=== PATIENT | male | born 1965 | race Caucasian/White ===

== ENCOUNTER 2025-07-04 20:36 | Emergency (ER) | payer BC ==
[~2025-07-04] VITALS: Ht 180.3 cm; Wt 83.9 kg
[2025-07-04] MEDS ORDERED: IBUPROFEN 400 MG TABLET ONE (22:31)
[2025-07-04] MEDS: IBUPROFEN 400 MG TABLET PO ONE (22:49)
[2025-07-04] MEDS: TDAP [DIPH/PERTUSSIS/TET] 0.5 ML VIAL IM ONE (22:51)
[2025-07-04 23:22] VITALS: BP 188/97; TEMP 98.6; O2SAT 98
== END 2025-07-04 23:22 | disposition home or self-care (01) ==
LOC: ER 20:41
DX: S70.01XA Contusion of right hip, initial encounter (principal); S50.11XA Contusion of right forearm, initial encounter; S00.93XA Contusion of unspecified part of head, initial encounter; R51.9 Headache, unspecified; V23.49XA Other motorcycle driver injured in collision with car, pick-up truck or van in traffic accident, initial encounter; Y93.89 Activity, other specified; Y92.410 Unspecified street and highway as the place of occurrence of the external cause; Y99.8 Other external cause status
CPT/HCPCS: 70450-TC; 73090-TC; 73502; 90715